=== PATIENT | female | born 1995 | race American Indian/Alaskan Native ===

== ENCOUNTER 2021-05-02 06:44 | Outpatient (CLI) | payer MEDICAID ==
[2021-05-02 01:10] LABS: Bilirubin,Urine NEG (Negative); Blood,Urine NEG (Negative); Color,Urine Yellow (Yellow); Mucus,Urine FEW /HPF
[2021-05-02 01:18] LABS: Alanine Aminotransferase 6 units/L (7-56); Albumin 3.4 g/dL (3.9-5); BUN/Creatinine Ratio 10; Blood Urea Nitrogen 4 mg/dL (7-17); Calcium 8.5 mg/dL (8.4-10.2); Hemolysis Index 0
[2021-05-02 01:20] LABS: Basophils % (Auto) 0.4 % (0.0-1.8); Eosinophils # (Auto) 0.1 K/mm3 (0.0-0.4); Eosinophils % (Auto) 0.7 % (0.0-4.3); Hemoglobin 8.1 gm/dl (10.1-14.3); Lymphocytes % (Auto) 10.6 % (13.4-35.0); Monocytes # (Auto) 0.8 K/mm3 (0.0-0.8); Monocytes % (Auto) 8.2 % (0.0-7.3)
[2021-05-02 01:26] LABS: Hematocrit 26.1 % (30.3-42.9); Mean Corpuscular HGB Conc 31 % (30-34); Mean Corpuscular Volume 70 fl (79-97); Platelet Count 299 K/mm3 (140-440); Red Blood Count 3.72 M/mm3 (3.65-5.03)
--- NOTE | 2021-05-02 02:29 | Emergency Department Report ---
ED Female HPI - General Chief complaint: Urogenital-Female Stated complaint: CRAMPS/DISCHARGE Source: patient Mode of arrival: Ambulatory Limitations: No Limitations - History of Present Illness Initial comments: Patient is A0 26-year-old -[place] female who is with twins but was gestational age is unknown due to the fact that the patient has not had any care presents to the ED with complaint of acute onset persistent vaginal discharge with malodorous smell and suprapubic pain for the last 1 week. Patient states that she went to an indigent clinic about 6 months ago where ultrasound confirmed that she was with twins but has never had any care. Patient states that the vaginal discharge makes uncomfortable and the pain in the lower abdomen is also been persistent. Patient denies dizziness, syncope, fever, chills, vaginal bleeding, vaginal discharge, nausea and vomiting, low back pain, or diarrhea. MD Complaint: vaginal discharge, pelvic pain -: Sudden, week(s) (1) Location: suprapubic, other (vaginal) Radiation: non-radiating Severity: moderate Severity scale (0 -10): 4 Quality: cramping, aching Consistency: intermittent Improves with: none Worsens with: movement Are you Now?: Yes (Twin , gestational age and known, no care) Associated Symptoms: denies other symptoms, vaginal discharge, abdominal pain (Suprapubic pain). denies: vaginal bleeding, nausea/vomiting, fever/chills, he adaches, loss of appetite, dysuria, seizure, shortness of breath, syncope, weakness - Related Data Sexually active: Yes : 2 Para: 1 A: 0 Previous Rx's Medication Instructions Recorded Last Taken Type Acetaminophen [Tylenol] 500 mg PO Q6HR PRN #30 tablet 05/02/21 Unknown Rx cephALEXin [Keflex] 500 mg PO Q8HR #30 cap 05/02/21 Unknown Rx metroNIDAZOLE [Flagyl] 500 mg PO Q12HR #14 tab 05/02/21 Unknown Rx Allergies Allergy/AdvReac Type Severity Reaction Status Date / Time No Known Allergies Allergy Verified 05/01/21 23:29 ED Review of Systems ROS: Stated complaint: CRAMPS/DISCHARGE Other details as noted in HPI Constitutional: denies: chills, fever Eyes: denies: eye pain, eye discharge, vision change ENT: denies: ear pain, throat pain Respiratory: denies: cough, shortness of breath, wheezing Cardiovascular: denies: chest pain, palpitations Endocrine: no symptoms reported Gastrointestinal: abdominal pain (Suprapubic pain). denies: nausea, vomiting, diarrhea Genitourinary: discharge. denies: urgency, dysuria, other Musculoskeletal: denies: back pain, joint swelling, arthralgia Skin: denies: rash, lesions Neurological: denies: headache, weakness, paresthesias Psychiatric: denies: anxiety, depression Hematological/Lymphatic: denies: easy bleeding, easy bruising ED Past Medical Hx - Past Medical History Previous Medical History?: No - Surgical History Past Surgical History?: Yes Additional Surgical History: - Medications Home Medications: Home Medications Medication Instructions Recorded Confirmed Last Taken Type Acetaminophen [Tylenol] 500 mg PO Q6HR PRN #30 tablet 05/02/21 Unknown Rx cephALEXin [Keflex] 500 mg PO Q8HR #30 cap 05/02/21 Unknown Rx metroNIDAZOLE [Flagyl] 500 mg PO Q12HR #14 tab 05/02/21 Unknown Rx ED Physical Exam - General Limitations: No Limitations General appearance: alert, in no apparent distress - Head Head exam: Present: atraumatic, normocephalic, normal inspection - Eye Eye exam: Present: normal appearance, PERRL, EOMI Pupils: Present: normal accommodation - ENT ENT exam: Present: normal exam, normal orophraynx, mucous membranes moist, TM's normal bilaterally, normal external ear exam - Neck Neck exam: Present: normal inspection, full ROM. Absent: tenderness - Respiratory Respiratory exam: Present: normal lung sounds bilaterally. Absent: respiratory distress, wheezes, rales, rhonchi, chest wall tenderness, accessory muscle use, decreased breath sounds, prolonged expiratory - Cardiovascular Cardiovascular Exam: Present: regular rate, normal rhythm, normal heart sounds. Absent: systolic murmur, diastolic murmur, rubs, gallop - GI/Abdominal GI/Abdominal exam: Present: soft, tenderness (Palpable mild suprapubic tenderness), normal bowel sounds, other (Gross gravid abdomen). Absent: guarding, rebound - Bi-manual exam: Present: other (Pelvic exam deferred at this time, patient prefers self swab) - Extremities Exam Extremities exam: Present: normal inspection, full ROM, normal capillary refill - Back Exam Back exam: Present: normal inspection, full ROM. Absent: tenderness, CVA tenderness (R), CVA tenderness (L), muscle spasm, vertebral tenderness - Neurological Exam Neurological exam: Present: alert, oriented X3, CN II-XII intact, normal gait, reflexes normal - Psychiatric Psychiatric exam: Present: normal affect, normal mood - Skin Skin exam: Present: warm, dry, intact, normal color. Absent: rash ED Medical Decision Making - Lab Data Result diagrams: 05/02/21 00:24 05/02/21 00:24 - Medical Decision Making This is A0 26-year-old -[place] female who is with twins but was gestational age is unknown due to the fact that the patient has not had any care presents to the ED with complaint of acute onset persistent vaginal discharge with malodorous smell and suprapubic pain for the last 1 week. Patient states that she went to an indigent clinic about 6 months ago where ultrasound confirmed that she was with twins but has never had any care. Patient states that the vaginal discharge makes uncomfortable and the pain in the lower abdomen is also been persistent. In the ED, patient is alert and oriented x3 and is not in distress. Lab test results were reviewed and are all nonactionable except for urinalysis that showed mild urinary tract infection and wet prep that was positive for Gardnerella vaginalis consistent with bacterial vaginosis. Patient was discharged from the ED and transferred to the labor and delivery department for further heart monitoring. Patient was advised to follow-up with [facility] physician on-call for further evaluation and to establish care. - Differential Diagnosis UTI; bacterial vaginosis; trichomonas; STD; ; Critical care attestation.: If time is entered above; I have spent that time in minutes in the direct care of this critically ill patient, excluding procedure time. ED Disposition Clinical Impression: Bacterial vaginosis in , Acute urinary tract infection Abdominal pain in Qualifiers: Trimester: third trimester Qualified Code(s): O26.893 - Other specified related conditions, third trimester; R10.9 - Unspecified abdominal pain Disposition: 01 HOME / SELF CARE / HOMELESS Is pt being admited?: No Does the pt Need Aspirin: No Condition: Stable Instructions: Bacterial Vaginosis (ED), Bacterial Vaginosis, [id number], Abdominal Pain During , [id number], Urinary Tract Infection, Adult, [id number] Additional Instructions: All lab test results were reviewed and are all nonactionable Prescriptions: Acetaminophen [Tylenol] 500 mg PO Q6HR PRN #30 tablet PRN Reason: Pain , Severe (7-10) metroNIDAZOLE [Flagyl] 500 mg PO Q12HR #14 tab cephALEXin [Keflex] 500 mg PO Q8HR #30 cap Referrals: SHARI BUNDY MD [Staff Physician] - 3-5 Days Forms: STI Treatment and Prevention Time of Disposition: 02:30 Print Language: CROATIAN
--- NOTE | 2021-05-02 05:55 | Ultrasound Report ---
ULTRASOUND OBSTETRIC INDICATION / CLINICAL INFORMATION: PAIN. Abdominal pain. Twin gestation. - Clinical Gestational Age (GA) in weeks, days: 20, 6 TECHNIQUE: Transabdominal. COMPARISON: None available. FINDINGS: Twin intrauterine . Twin A Average Ultrasound Age (AUA) = 22, 5 weeks, days Heart Rate: 143 beats per minute. Estimated Weight in grams (if calculated): 514 g Estimated Weight Growth Percentile (if calculated): 99% Position: cephalic. Placenta: anterior and free of the os. Twin B Average Ultrasound Age (AUA) = 22, 1 weeks, days Heart Rate: 168 beats per minute. Estimated Weight in grams (if calculated): 495 g Estimated Weight Growth Percentile (if calculated): 99% Position: transverse. Head to maternal left. Placenta: posterior and free of the os. Cervix: closed. Length in cm (if measured): 4.1 cm Amniotic Fluid Volume: normal Maternal Adnexa: No significant abnormality. IMPRESSION: 1. Twin, living intrauterine with estimated sonographic age of 22, 5 and 22, 1 weeks, days. 2. No significant sonographic abnormality. Signer Name: Rivera Farias MD Signed: 05/02/2021 5:50 AM Workstation Name: [id number]
[2021-05-02 06:37] VITALS: BP 97/51
== END 2021-05-02 07:35 | disposition home or self-care (01) ==
LOC: TRG 06:44
PROVIDERS: ATTEND Obstetrics & Gynecology Gynecology
DX: O26.892 Other specified pregnancy related conditions, second trimester (principal); Z3A.20 20 weeks gestation of pregnancy; N89.8 Other specified noninflammatory disorders of vagina; R10.9 Unspecified abdominal pain
CPT/HCPCS: 36415; 76805; 76810; 80053; 81001; 84702; 85025; 87210